=== PATIENT | female | born 1960 | race Caucasian/White ===

== ENCOUNTER 2017-10-05 18:42 | Emergency (ER) | payer SELFPAY ==
[~2017-10-05] VITALS: Ht 162.6 cm; Wt 60.0 kg
[2017-10-05 18:54] VITALS: BP 171/96; PULSE 77; RESP 18; TEMP 98.3; O2SAT 95
--- NOTE | 2017-10-05 19:01 | PD ---
HPI Chief Complaint: Medication Refill Request Time Seen by Provider: 19:00 Travel History International Travel<30 days: No Contact w/Intl Traveler<30days: No Traveled to known affect area: No History of Present Illness HPI 57-year-old female recently moved here from [place], presents emergency department for refills of multiple medications for COPD, depression, chronic lower neuropathy pain, and hypertension. Patient states she is unable to get into a local primary care physician until October 27. She is currently out of most of her meds. It was explained to the patient that certain meds can be refilled per ED policy. She has no other acute complaints. She has no known drug allergies. [facility] Social History Alcohol Use: Yes Tobacco Use: Yes Substance Use: No Allergies-Medications Reported Meds & Prescriptions Reported Meds & Active Scripts Active Hydrochlorothiazide 12.5 Mg Cap 12.5 Mg PO DAILY Lisinopril 20 Mg Tab 20 Mg PO DAILY Gabapentin 300 Mg Cap 300 Mg PO TID Effexor (Venlafaxine HCl) 75 Mg Tab 75 Mg PO DAILY Naproxen 500 Mg Tab 500 Mg PO BID Review of Systems Except as stated in HPI: all other systems reviewed are Neg General / Constitutional: No: Fever Eyes: No: Visual changes HENT: No: Headaches Cardiovascular: No: Chest Pain or Discomfort Respiratory: No: Shortness of Breath Gastrointestinal: No: Abdominal Pain Genitourinary: No: Dysuria Musculoskeletal: No: Pain Skin: No Rash Neurologic: No: Weakness Psychiatric: No: Depression Endocrine: No: Polydipsia Hematologic/Lymphatic: No: Easy Bruising Physical Exam Narrative GENERAL: Patient is in no obvious distress per SKIN: Warm and dry. Color. Normal turgor HEAD: Atraumatic. Normocephalic. EYES: Pupils equal and round. No scleral icterus. No injection or drainage. ENT: No nasal bleeding or discharge. Mucous membranes pink and moist. Pharynx is clear. Airways patent NECK: Trachea midline. Supple nontender. CARDIOVASCULAR: Regular rate and rhythm. RESPIRATORY: No accessory muscle use. Clear to auscultation. Breath sounds equal bilaterally. GASTROINTESTINAL: Abdomen soft, non-tender, nondistended. Hepatic and splenic margins not palpable. MUSCULOSKELETAL: Extremities without clubbing, cyanosis, or edema. No obvious deformities. NEUROLOGICAL: Awake and alert. No obvious cranial nerve deficits. Motor grossly within normal limits. Five out of 5 muscle strength in the arms and legs. Normal speech. PSYCHIATRIC: Appropriate mood and affect; insight and judgment normal. Data Data Last Documented VS Vital Signs Date Time Temp Pulse Resp B/P (MAP) Pulse Ox O2 Delivery O2 Flow Rate FiO2 10/05/17 18:54 98.3 77 18 171/96 (121) 95 MDM Medical Decision Making Medical Screen Exam Complete: Yes Emergency Medical Condition: Yes Differential Diagnosis Depression. Anxiety. COPD. Hypertension. Neuropathy pain. Narrative Course Patient is given prescription for naproxen 500 mg twice daily #60. Patient is given a prescription for her Effexor 75 mg daily. Patient is given a prescription for gabapentin 300 mg 3 times daily #90. Patient is given lisinopril 20 mg daily #30. Patient is given hydrochlorothiazide 12.5 mg daily #30. I explained to the patient further refills should be obtained from her new primary care physician. Diagnosis Primary Impression: Encounter for medication refill Referrals: Primary Care Physician Patient Instructions: General Instructions Additional Instructions: Patient is given prescription for naproxen 500 mg twice daily #60. Patient is given a prescription for her Effexor 75 mg daily. Patient is given a prescription for gabapentin 300 mg 3 times daily #90. Patient is given lisinopril 20 mg daily #30. Patient is given hydrochlorothiazide 12.5 mg daily #30. I explained to the patient further refills should be obtained from her new primary care physician. Med/Other Pt SpecificInfo: Prescription(s) given Scripts Hydrochlorothiazide (Hydrochlorothiazide) 12.5 Mg Cap 12.5 MG PO DAILY, #30 CAP 0 Refills Prov: Marlyn Sterling MD 10/05/17 Lisinopril (Lisinopril) 20 Mg Tab 20 MG PO DAILY, #30 TAB 0 Refills Prov: Marlyn Sterling MD 10/05/17 Gabapentin (Gabapentin) 300 Mg Cap 300 MG PO TID, #90 CAP 0 Refills Prov: Marlyn Sterling MD 10/05/17 Venlafaxine (Effexor) 75 Mg Tab 75 MG PO DAILY, #30 TAB 0 Refills Prov: Marlyn Sterling MD 10/05/17 Naproxen (Naproxen) 500 Mg Tab 500 MG PO BID, #60 TAB 0 Refills Prov: Marlyn Sterling MD 10/05/17 Disposition: 01 DISCHARGE HOME Condition: Stable Fidel Camp Oct 05, 2017 19:01
[2017-10-05] MEDS ORDERED: LISI-515 PO (19:21)
[2017-10-05] MEDS ORDERED: GABA300C5 PO ×2 (19:21→20:19)
[2017-10-05] MEDS ORDERED: HYDR12.57 PO (19:21)
[2017-10-05] MEDS ORDERED: NAPR500T2 PO ×2 (19:21→19:58)
[2017-10-05] MEDS ORDERED: VENL75TA PO ×2 (19:21→20:19)
[2017-10-05] MEDS ORDERED: SYMB160A INH (19:58)
[2017-10-05] MEDS ORDERED: DIVA500T3 PO (19:58)
[2017-10-05] MEDS ORDERED: DOCU1CAP66 (19:58)
[2017-10-05] MEDS ORDERED: VENTAER INH (19:58)
[2017-10-05] MEDS ORDERED: LISI20TA PO (19:58)
== END 2017-10-05 20:21 | disposition home or self-care (01) ==
LOC: NEPK 18:42
DX: I10 Essential (primary) hypertension (principal); F32.9 Major depressive disorder, single episode, unspecified; J44.9 Chronic obstructive pulmonary disease, unspecified; Z72.0 Tobacco use; Z76.0 Encounter for issue of repeat prescription
CPT/HCPCS: 99281